=== PATIENT | female | born 1985 | race African-American/Black ===

== ENCOUNTER 2019-10-04 09:26 | Emergency (ER) | payer OTHER ==
[~2019-10-04] VITALS: Ht 152.4 cm; Wt 68.0 kg
[2019-10-04 09:50] VITALS: BP 133/84
[2019-10-04] MEDS ORDERED: SODIUM CHLORIDE 0.9% 1,000 ML IV ONE (10:46)
[2019-10-04] MEDS ORDERED: ONDANSETRON HCL 4 MG/2 ML VIAL IV ONE (11:00)
[2019-10-04 11:14] LABS: Basophils # (auto) 0 10 ^3/uL (0-0.2); Eosinophils # (auto) 0 10 ^3/uL (0-0.8); Hematocrit 36.1 % (36.0-46.0); Hemoglobin 11.1 g/dL (12.2-16.2); Lymphocytes # (auto) 1.5 10 ^3/uL (0.4-5.4); Mean Corpuscular Hemoglobin 25.3 pg (28.0-32.0); White Blood Cell 13.9 10^3/uL (4.4-10.8)
[2019-10-04 11:16] LABS: Basophils % (auto) 0.4 % (0.0-2.0); Lymphocytes % (auto) 10.5 % (10.0-50.0); Mean Corpuscular Hgb Conc. 30.8 g/dL (32.0-36.0); Mean Corpuscular Volume 82.2 fL (80.0-100.0); Monocytes # (auto) 0.3 10 ^3/uL (0-1.3); Monocytes % (auto) 2.2 % (0.0-12.0); Neutrophils # (auto) 12.1 10 ^3/uL (1.6-8.6); Neutrophils % (auto) 86.9 % (37.0-80.0); Platelet Count (auto) 307 10^3/uL (140-450); Red Blood Cells 4.39 10^6/uL (4.0-5.20); Red Cell Distribution Width 14.3 % (11.8-14.3)
[2019-10-04 11:49] LABS: Potassium 3.4 mmol/L (3.5-5.1)
[2019-10-04 11:50] LABS: Albumin 3.3 g/dL (3.4-5.0); BUN/Creatinine Ratio 16.2; Bilirubin, Total 0.3 mg/dL (0.2-1.0); Calcium 8.7 mg/dL (8.5-10.1); Total Protein 7.9 g/dL (6.4-8.2)
[2019-10-04] MEDS ORDERED: cefTRIAXone 1GM/50ML D5W 50 ML IV ONE (12:30)
[2019-10-04] MEDS ORDERED: KETOROLAC TROMETH 30 MG/ML 1ML VIAL IV ONE (12:30)
[2019-10-04] MEDS ORDERED: TAMSULOSIN HYDROCHLORIDE 0.4 MG CAP PO ONE (12:30)
[2019-10-04] MEDS ORDERED: cefTRIAXone SOD 1,000 MG VL ONE (12:35)
== END 2019-10-04 14:42 | disposition home or self-care (01) ==
LOC: ER 09:26
DX: N20.0 Calculus of kidney (principal); E87.6 Hypokalemia; E46 Unspecified protein-calorie malnutrition
CPT/HCPCS: 36415; 74176; 80053; 83690; 84702; 85025; 96365; 96375; 99284; J0696; J1885; J2405; J7030